=== PATIENT | male | born 2000 | race Caucasian/White ===

== ENCOUNTER 2022-10-02 03:02 | Emergency (ER) | payer SELFPAY ==
[~2022-10-02] VITALS: Ht 182.9 cm; Wt 77.1 kg
[2022-10-02 03:25] VITALS: BP 113/65
--- NOTE | 2022-10-02 03:27 | NUR ---
TO BED AMBULATORY
--- NOTE | 2022-10-02 03:39 | NUR ---
franck barron at bedside evaluating pt
[2022-10-02] MEDS ORDERED: HYDROcodone/APAP 10/325 MG 1 TAB TAB PO STA (03:43)
[2022-10-02] MEDS ORDERED: KETOROLAC 30 MG/ML VIAL IM ONE (03:45)
[2022-10-02] MEDS ORDERED: IBUP-2213 PO (04:32)
[2022-10-02] MEDS ORDERED: HYDR-5191 PO (04:32)
[2022-10-02 04:37] VITALS: BP 128/74
--- NOTE | 2022-10-02 04:37 | NUR ---
Patient discharged with v/s stable. Written and verbal after care instructions given and explained. Patient verbalized understanding. Ambulatory with steady gait. All questions addressed prior to discharge. Advised to follow up with PMD.
--- NOTE | 2022-10-02 04:37 | NUR ---
Note reynaldoone in EDM - 10/02/22 at 0438 by MED Patient discharged with v/s stable. Written and verbal after care instructions given and explained. Patient alert, oriented and verbalized understanding of instructions. Ambulatory with steady gait. All questions addressed prior to discharge. ID band removed. Patient advised to follow up with PMD. Rx of norco and ibuprofen given. Patient educated on indication of medication including possible reaction and side effects. Opportunity to ask questions provided and answered.
== END 2022-10-02 04:37 | disposition home or self-care (01) ==
LOC: MED 03:02
DX: S02.5XXA Fracture of tooth (traumatic), initial encounter for closed fracture (principal); X58.XXXA Exposure to other specified factors, initial encounter; Y93.89 Activity, other specified; Y92.89 Other specified places as the place of occurrence of the external cause; Y99.8 Other external cause status
CPT/HCPCS: 96372; 99283; J1885